=== PATIENT | female | born 1995 | race Caucasian/White ===

== ENCOUNTER 2018-08-26 14:56 | Emergency (ER) | payer OTHER ==
[~2018-08-26] VITALS: Ht 172.7 cm; Wt 100.0 kg
[2018-08-26] MEDS ORDERED: PHEN-501 PO (15:06)
[2018-08-26] MEDS ORDERED: CIPR-249 PO ×2 (15:06→21:39)
[2018-08-26] MEDS ORDERED: IBUP-1022 PO (15:06)
[2018-08-26] MEDS ORDERED: NS 1,000 ML IV ONE (16:00)
[2018-08-26] MEDS ORDERED: TAMSULOSIN 0.4 MG CAP PO ONE (16:00)
[2018-08-26 16:11] LABS: BASO # 0.1 10^3/uL (0.0-0.2); BASO % 0.3 % (0.0-1.0); EOS # 0.2 10^3/uL (0.0-0.50); HEMATOCRIT 37.3 % (36.0-47.0); HEMOGLOBIN 12.5 g/dl (12.0-15.5); LYMPH # 2.8 10^3/uL (1.5-6.5); LYMPH % 15.3 % (24.0-44.0); MEAN CORPUSCULAR HGB CONC 33.5 g/dl (32.0-36.5); MEAN CORPUSCULAR VOLUME 92.6 fl (80.0-96.0); MONO # 1.3 10^3/uL (0.0-0.8); MONO % 6.9 % (0.0-5.0); NEUTROPHILS # 14.2 10^3/uL (1.8-7.7); PLATELET COUNT, AUTOMATED 484 10^3/uL (150-450); RED BLOOD COUNT 4.03 10^6/uL (4.00-5.40); WHITE BLOOD COUNT 18.6 10^3/uL (4.0-10.0)
[2018-08-26 16:27] LABS: HCG, SERUM QUALITATIVE NEGATIVE (NEGATIVE)
[2018-08-26 16:30] LABS: BLOOD UREA NITROGEN 13 MG/DL (7-18); CALCIUM LEVEL 8.8 MG/DL (8.5-10.1); CARBON DIOXIDE LEVEL 25 MEQ/L (21-32); CHLORIDE LEVEL 105 MEQ/L (98-107); CREATININE FOR GFR 1.21 MG/DL (0.55-1.30); GLOMERULAR FILTRATION RATE 59.8 (>60); GLUCOSE, FASTING 80 MG/DL (70-100); POTASSIUM SERUM 3.7 MEQ/L (3.5-5.1); SODIUM LEVEL 140 MEQ/L (136-145)
[2018-08-26] MEDS: GASTROGRAFIN SOLUTION 30ML PO SCH ×2 (18:35→19:00)
[2018-08-26] MEDS ORDERED: cefTRIAXone SOD 1 GM in D5W MINI-BAG PLUS 50 ML IV ONE (19:00)
[2018-08-26] MEDS ORDERED: IBUPROFEN 800 MG TAB PO ONE (19:45)
[2018-08-26] MEDS ORDERED: ISOVUE-370 76% 100ML VIAL (Q9967) As Ordered ONE (19:55)
--- NOTE | 2018-08-26 20:47 | REPVR ---
EXAM: CT Abdomen and Pelvis With Contrast EXAM DATE/TIME: 08/26/2018 8:07 PM CLINICAL HISTORY: 23 years old, female; Pain; Abdominal pain; Generalized; Additional info: Abdominal pain with urniary retension TECHNIQUE: Imaging protocol: Axial computed tomography images of the abdomen and pelvis with intravenous contrast. Coronal and sagittal reformatted images were created and reviewed. Radiation optimization: All CT scans at this facility use at least one of these dose optimization techniques: automated exposure control; mA and/or kV adjustment per patient size (includes targeted exams where dose is matched to clinical indication); or iterative reconstruction. Contrast material: ISOVUE 370 Contrast volume: 100 ml Contrast route: IV COMPARISON: No relevant prior studies available. FINDINGS: Lower thorax: Minimal atelectasis in the left lung base. ABDOMEN: Liver: Small area of decreased attenuation within the left hepatic lobe, abutting the fissure for the ligamentum teres, consistent with focal fatty infiltration. No intrahepatic duct dilatation. Gallbladder and bile ducts: Unremarkable. No calcified stones. No ductal dilation. Pancreas: Unremarkable. No ductal dilation. Spleen: Unremarkable. No splenomegaly. Adrenals: Normal. No mass. Kidneys and ureters: Unremarkable. No stones. No hydronephrosis. Stomach and bowel: Unremarkable. No obstruction. No mucosal thickening. Appendix: No evidence of appendicitis. PELVIS: Bladder: There is a Garcia catheter within the urinary bladder. Reproductive: Either fluid or tampon is present within the vagina. The uterus and adnexa are unremarkable. ABDOMEN and PELVIS: Intraperitoneal space: There is trace fluid in the posterior cul-de-sac, likely physiologic. Bones/joints: No acute fracture. Soft tissues: Unremarkable. Vasculature: Unremarkable. No abdominal aortic aneurysm. Lymph nodes: Unremarkable. No enlarged lymph nodes. IMPRESSION: 1. Garcia catheter within the urinary bladder. 2. No acute abdominopelvic process. Electronically signed by: Allan Cheney On 08/26/2018 20:47:22 PM
[2018-08-26] MEDS ORDERED: MIRA3350 PO (21:39)
[2018-08-26 22:18] VITALS: BP 134/69
== END 2018-08-26 22:21 | disposition home or self-care (01) ==
LOC: M ED 14:56
DX: N39.0 Urinary tract infection, site not specified (principal); K59.00 Constipation, unspecified; R33.9 Retention of urine, unspecified; Z96.0 Presence of urogenital implants
CPT/HCPCS: 51702; 74177; 80048; 81001; 83605; 84703; 85025; 87040; 87086; 96365; 96366; 99285; J0696; Q9963; Q9967

== ENCOUNTER 2020-11-23 00:49 | Emergency (ER) | payer OTHER ==
[~2020-11-23] VITALS: Ht 172.7 cm; Wt 106.8 kg
[~2020-11-23 00:49] MED LIST: CIPR-249 PO; IBUP-1022 PO; MIRA3350 PO; PHEN-501 PO
[2020-11-23] MEDS ORDERED: birth control tablet PO (00:57)
[2020-11-23] MEDS ORDERED: LIDOCAINE VISCOUS 2% SOLN 15ML UDC SSP ONE (06:20)
--- NOTE | 2020-11-23 07:35 | REPVR ---
PROCEDURE INFORMATION: Exam: XR Soft Tissue Neck Exam date and time: 11/23/2020 6:54 AM Age: 25 years old Clinical indication: Other: Swelling, sensation swallowing TECHNIQUE: Imaging protocol: XR of the soft tissues of the neck. COMPARISON: No relevant prior studies available. FINDINGS: Airway: Normal. No abnormal narrowing. Soft tissues: Normal. Normal epiglottis. Bones/joints: Reversal of cervical lordosis. IMPRESSION: 1. Unremarkable soft tissues. Electronically signed by: Sydney Martinez On 11/23/2020 07:35:29 AM
[2020-11-23 07:59] VITALS: BP 135/85
[2020-11-23 08:31] LABS: MONO SCRN NEGATIVE (NEGATIVE)
== END 2020-11-23 08:03 | disposition home or self-care (01) ==
LOC: M ED 00:49
DX: H92.03 Otalgia, bilateral (principal); J02.9 Acute pharyngitis, unspecified